=== PATIENT | male | born 1975 | race African-American/Black ===

== ENCOUNTER 2021-01-30 03:24 | Emergency (ER) | payer OTHER ==
[~2021-01-30] VITALS: Ht 190.5 cm; Wt 133.8 kg
[2021-01-30 03:48] VITALS: BP 155/96
[2021-01-30] MEDS ORDERED: BACTRIM DS TAB1 EAC1 ORAL (03:59)
[2021-01-30] MEDS ORDERED: MUPIROCIN22 GM TOPIC (03:59)
[2021-01-30] MEDS ORDERED: Bactrim-DS 1 tab ORAL ONE (04:00)
[2021-01-30] MEDS ORDERED: HYDROcodone/Acetamin 5/325 tab ORAL ONE (04:00)
--- NOTE | 2021-01-30 04:00 | Emergency Room Report ---
History of Present Illness General Chief Complaint: Skin Rash/Abscess Source: Patient Present Illness HPI This is a 45-year-old male with no past medical history. Presents with chief plaint of an abscess to his abdomen. He started 4 days ago as a small pimple. He is keep getting bigger and painful. Tonight it started draining. Mostly blood. No fever chills but no nausea no vomiting. Worse with scratching and palpation. Better with rest. Pain is 7 out of 10. Allergies: Coded Allergies: No Known Allergies (Unverified , 01/30/21) COVID-19 Screening Contact w/high risk pt: No Experienced COVID-19 symptoms?: No COVID-19 Testing performed [employer]CESSION WORKER: No Patient History Past Medical History: see triage record, old chart reviewed Past Surgical History: none Pertinent Family History: none Social History: Denies: smoking Immunizations: other Reviewed Nursing Documentation: PMH: Agreed; PSxH: Agreed Review of Systems Eye: Denies: eye pain, blurred vision ENT: Denies: ear pain, nose congestion, throat swelling Respiratory: Denies: cough, shortness of breath Cardiovascular: Denies: chest pain, palpitations Gastrointestinal: Denies: abdominal pain, diarrhea, nausea, vomiting Musculoskeletal: Denies: back pain, joint pain Skin: Denies: rash Neurological: Denies: headache, numbness Endocrine: Denies: increased thirst, increased urine Hematologic/Lymphatic: Denies: easy bruising All Other Systems: negative except mentioned in HPI Physical Exam Vital Signs Date Time Temp Pulse Resp B/P (MAP) Pulse Ox O2 Delivery O2 Flow Rate FiO2 01/30/21 03:36 98.4 79 20 155/96 (115) 100 Room Air Vitals with high blood pressure Sp02 EP Interpretation: reviewed, normal General Appearance: well appearing, no apparent distress, alert Head: normocephalic, atraumatic Eyes: bilateral eye PERRL, bilateral eye EOMI ENT: hearing grossly normal, normal pharynx Neck: full range of motion, supple, no meningismus Respiratory: chest non-tender, lungs clear, normal breath sounds Cardiovascular #1: regular rate, rhythm, no murmur Gastrointestinal: normal bowel sounds, non tender, no mass, no organomegaly, no bruit, non-distended, other - Abdominal wall in the right lower quadrant: Just above the inguinal crease, there is an indurated area of 4 cm with erythema. There is a small ulcerated center with bloody purulent discharge. No crepitance. Musculoskeletal: back normal, normal range of motion, gait/station normal Psychiatric: mood/affect normal Procedures Incision and Drainage Incision and Drainage : Consent: Verbal Site: Right lower abdominal wall Blade Size: 11 I & D Procedure: betadine prep Anesthesia: 1% Lidocaine Volume Anesthetic (ccs): 5 Patient Tolerated: Well Complications: None Progress Area cleaned with Betadine. Local anesthetic with 1% lidocaine with epinephrine. I made a 1 and half centimeter incision. There was moderate amount of purulent and bloody discharge expressed. Loculated area broken up. Dressing placed. Patient tolerate procedure without any problem. Medical Decision Making Diagnostic Impression: Primary Impression: Abscess Additional Impression: High blood pressure Qualified Codes: I10 - Essential (primary) hypertension ER Course Patient with abdominal wall abscess. No deep infection or necrotizing fasciitis. His blood pressure elevated here. He has no symptoms. This may be secondary to the pain but I told patient to check his blood pressure regularly for the next week and keep a log. Follow-up with his doctor to see when need to be on blood pressure medication. Last Vital Signs Date Time Temp Pulse Resp B/P (MAP) Pulse Ox O2 Delivery O2 Flow Rate FiO2 01/30/21 03:48 98.4 20 155/96 100 Room Air 01/30/21 03:36 79 Status: improved Disposition: HOME, SELF-CARE Condition: Stable Scripts Trimethoprim/Sulfamethoxazole 160/800* (BACTRIM DS TABLET*) 1 Each Tablet 1 TAB ORAL Q12H, #14 TAB 0 Refills Prov: Paul Jarvis MD 01/30/21 Mupirocin* (MUPIROCIN*) 22 Gm Oint...g. 1 APPLIC TOPIC THREE TIMES A DAY, #22 GM Prov: Paul Jarvis MD 01/30/21 Referrals: NOT CHOSEN IPA/,REFERRING (PCP) Patient Instructions: Abscess Additional Instructions: Keep wound clean. Clean first with hydroperoxide and apply antibiotic ointment. Follow-up with your doctor in 7 days for recheck. Your blood pressure is elevated here. Check your blood pressure regularly about twice a day and keep a log. Bring this to your primary care doctor to see if you need to be on blood pressure medication. Return if symptoms worsen. Paul Jarvis MD 12, 2021 04:00
== END 2021-01-30 04:04 | disposition home or self-care (01) ==
LOC: EMR 03:43
DX: L02.211 Cutaneous abscess of abdominal wall (principal); I10 Essential (primary) hypertension
CPT/HCPCS: 10060; 99282